=== PATIENT | female | born 1970 | race Caucasian/White ===

== ENCOUNTER 2021-04-11 16:40 | Emergency (ER) | payer OTHER ==
[~2021-04-11] VITALS: Ht 165.1 cm; Wt 90.7 kg
[2021-04-11] MEDS ORDERED: PROTONIX40 M2 PO (16:53)
[2021-04-11] MEDS ORDERED: WELLBUTRIN SR150 M1 PO (16:53)
[2021-04-11 19:23] VITALS: BP 126/92
== END 2021-04-11 19:24 | disposition home or self-care (01) ==
LOC: M.ERS 16:40
DX: S01.81XA Laceration without foreign body of other part of head, initial encounter (principal); K21.9 Gastro-esophageal reflux disease without esophagitis; Z88.5 Allergy status to narcotic agent; W22.8XXA Striking against or struck by other objects, initial encounter; Y93.89 Activity, other specified; Y92.89 Other specified places as the place of occurrence of the external cause; Y99.8 Other external cause status